=== PATIENT | female | born 1980 | race Caucasian/White ===

== ENCOUNTER → 2019-12-02 17:54 | Outpatient (CLI) | payer OTHER, SELFPAY ==
--- NOTE | ~2019-12-02 | MR_ITS ---
EXAMINATION: MR cervical spine wo con EXAM DATE: 12/02/2019 18:39 INDICATION: Neck pain, left shoulder, left arm pain. TECHNIQUE: Multi-sequential, multiplanar MR images of the cervical spine were obtained without contra st. Axial T2, axial T2 MERGE sequence. Sagittal T1, T2, T2 fat saturation images also obtained. Th ere is no prior study for comparison. FINDINGS: There is moderate loss of the disc heights at C5-6 and 6-7. Disc bulge, the extrusion at t he C6-7 level. The spinal cord signal intensity and intrinsic morphology is normal. Cervicomedullary junction is normal in appearance. There are no suspicious marrow signal abnormalities. The vertebral bodies are aligned in the AP dimension. Paraspinal soft tissue is unremarkable. Level by level evaluation: C2-C3: Disc does not extend beyond the endplate margin. Uncovertebral joint arthropathy: None. Facet joint arthropathy: Mild bilateral. Neural foraminal stenosis: No stenosis. Central canal stenosis: No stenosis. C3-C4: Disc does not extend beyond the endplate margin. Uncovertebral joint arthropathy: None. Facet joint arthropathy: Mild bilateral. Neural foraminal stenosis: No stenosis. Central canal stenosis: No stenosis. C4-C5: Disc does not extend beyond the endplate margin. Uncovertebral joint arthropathy: None. Facet joint arthropathy: Mild bilateral. Neural foraminal stenosis: No stenosis. Central canal stenosis: No stenosis. C5-C6: There is a mild diffuse disc bulge. Uncovertebral joint arthropathy: Mild to moderate bilateral. Facet joint arthropathy: Mild bilateral. Neural foraminal stenosis: Mild to moderate right, mild left. Central canal stenosis: Mild. C6-C7: There is a mild diffuse disc bulge with superimposed left central small to moderate extrusion indenting the spinal cord and causing mass effect on the lateral recess. Uncovertebral joint arthropathy: Mild to moderate. Facet joint arthropathy: Mild. Neural foraminal stenosis: Mild right. Central canal stenosis: Mild. C7-T1: Disc does not extend beyond the endplate margin. Uncovertebral joint arthropathy: Mild bilateral. Facet joint arthropathy: Mild bilateral. Neural foraminal stenosis: No stenosis. Central canal stenosis: No stenosis. IMPRESSION: C6-7 left central small to moderate extrusion indenting the spinal cord and narrowing the lateral recess, could be affecting C8 nerve root in the lateral recess. Reviewed, dictated and finalized at location A.
== END ==
PROVIDERS: PCP Family Medicine; Visit Provider Family Medicine
DX: M50.223 Other cervical disc displacement at C6-C7 level (principal)
CPT/HCPCS: 72141

== ENCOUNTER → 2021-03-09 10:44 | Outpatient (CLI) | payer OTHER, SELFPAY ==
--- NOTE | ~2021-03-09 | CT_ITS ---
EXAMINATION: CT IAC/mastoids BI wo con DATE: 03/09/2021 11:04 INDICATION: Conductive hearing loss in right ear. TECHNIQUE: Computed tomography (CT) of the temporal bones was performed without intravenous contrast. Automated exposure control and iterative reconstruction technique were employed. The dose-length pro duct was 216.28 mGy-cm. COMPARISON: Brain MRI 12/16/2018 FINDINGS: There are mucous retention cysts in left maxillary sinus. RIGHT TEMPORAL BONE: The internal auditory canal, cochlea, vestibule, semicircular canals, vestibular aqueduct, facial ner ve course, carotid canal, and jugular bulb are normal. There is material around the ossicles with ero sions of the ossicles. There is material in Prussak space. There are erosions of scutum. The tympanic membrane is normal. The external auditory canals normal. The mastoid air cells are normal. LEFT TEMPORAL BONE: The internal auditory canal, cochlea, vestibule, semicircular canals, vestibular aqueduct, carotid ca nal, jugular bulb, facial nerve course, ossicles, Prussak space, scutum, tympanic membrane, mastoid a ir cells, and extraocular canal are normal. IMPRESSION: 1. Material around the right-sided ossicles and in right Prussak space with erosions of the ossicles and scutum suspicious for cholesteatoma. Reviewed, dictated and finalized at location A. IMPRESSION: 1. Material around the right-sided ossicles and in right Prussak space with ero sions of the ossicles and scutum suspicious for cholesteatoma.
== END ==
PROVIDERS: Visit Provider Otolaryngology
DX: H91.90 Unspecified hearing loss, unspecified ear (principal)
CPT/HCPCS: 70480

== ENCOUNTER → 2021-12-08 09:00 | Outpatient (CLI) | payer OTHER, SELFPAY ==
--- NOTE | ~2021-12-08 | XR_ITS ---
EXAMINATION: XR hip RT min 2V DATE: 12/08/2021 09:57 INDICATION: Right hip pain TECHNIQUE: Two views of right hip were obtained. COMPARISON: None. FINDINGS: Bone alignment is normal. There is no fracture. There is moderate osteoarthritis of the hip . Phleboliths are noted in the pelvis. IMPRESSION: 1. Moderate osteoarthritis without acute osseous abnormality. Reviewed, dictated and finalized at location B.
--- NOTE | ~2021-12-08 | XR_ITS ---
EXAMINATION: XR lumbar spine min 4V DATE: 12/08/2021 09:57 INDICATION: Dorsalgia unspecified TECHNIQUE: Anteroposterior, lateral, and bilateral oblique views of the lumbar spine, and cone-down l ateral view of the lumbosacral junction were obtained. COMPARISON: None. FINDINGS: There are bilateral L5 pars defects. There is grade 1 anterolisthesis of L5 on S1. Vertebra l body alignment is otherwise normal. There is moderate loss of intervertebral disc space height at L 5-S1. The remaining vertebral body heights are maintained. There is no fracture. IMPRESSION: 1. Bilateral L5 pars defects with grade 1 anterolisthesis L5 on S1. Reviewed, dictated and finalized at location B.
== END ==
PROVIDERS: PCP Family Medicine; Visit Provider Physician Assistant
DX: M54.9 Dorsalgia, unspecified (principal); M16.11 Unilateral primary osteoarthritis, right hip
CPT/HCPCS: 72110; 73502

== ENCOUNTER 2022-06-19 09:17 | Emergency (ER) | payer OTHER, SELFPAY ==
[2022-06-19] VITALS (12 sets, daily range): BP systolic 129–164; BP diastolic 54–100; PULSE 79–103; RESP 11–21; TEMP 36.1–36.6; O2SAT 97–100
--- NOTE | ~2022-06-19 | CT_ITS ---
EXAMINATION: CT abdomen pelvis w con DATE: 06/19/2022 10:29 INDICATION: Right lower quadrant abdominal pain. TECHNIQUE: Computed tomography (CT) of the abdomen and pelvis was performed with 100 mL Omnipaque 350 intravenous contrast. Automated exposure control and iterative reconstruction technique were employe d. The dose-length product was 1268.64 mGy-cm. COMPARISON: None. FINDINGS: The visualized portions of the lung bases demonstrate minimal atelectasis. No pleural effus ion. The heart size is normal. No pericardial effusion. The liver, gallbladder, spleen, pancreas, adr enal glands, and right kidney are normal. There is a 6 mm mass of fat in left kidney, consistent with an angiomyolipoma. There are no dilated loops of bowel. The appendix is not visualized. There are no pathologically enlarged lymph nodes. There is no free intraperitoneal fluid. There is moderate lower lumbar spondylosis. There are chronic bilateral L5 pars defects with 3 mm anterolisthesis of L5 on S 1. IMPRESSION: 1. No specific etiology for the patient's symptoms. Appendix not visualized. Reviewed, dictated and finalized at location B.
--- NOTE | ~2022-06-19 | US_ITS ---
EXAMINATION: US pelvic complete w TV DATE: 06/19/2022 11:54 INDICATION: Right adnexal pain Comparison:No prior studies for comparison. TECHNIQUE: Multiple transabdominal and endovaginal sonographic images of the pelvis performed. FINDINGS: The uterus measures 11.1 x 2.7 x 4.5 cm. The endometrial complex measures 6 mm. The right ovary measures 2.9 x 1.8 x 2.5 cm and the left ovary measures 2 x 2.1 x 2.6 cm. There are small follicles in each ovary. Normal doppler signal in both ovaries. There is no free fluid in the pelvis. There are no abnormal masses seen on either side. IMPRESSION: 1. Unremarkable pelvic ultrasound. Reviewed, dictated and finalized at location A.
[2022-06-19] MEDS: MORPHINE SULFATE (*CRX) 4 MG/ML INJ IV PUSH (09:50)
[2022-06-19] MEDS: ONDANSETRON INJ 4 MG/2 ML VIAL IV PUSH (09:50)
[2022-06-19 09:53] LABS: Basophils Percent Auto 0.6 % (0.2-1.2); Eosinophils Percent Auto 0.3 % (0-4.4); Hematocrit 42.3 % (37.0-47.0); Hemoglobin 14.1 g/dL (12.0-15.0); Lymphocytes Absolute Auto 2.04 K/mm3 (0.9-3.2); Mean Corpuscular HGB Conc 33.3 g/dl (32-36); Mean Platelet Volume 9.3 fl (7.4-10.4); Monocytes Absolute Auto 0.5 K/mm3 (0.1-0.6); Monocytes Percent Auto 7.1 % (2.6-8.5); Platelet Count Result 262 k/mm3 (150-375); Red Cell Distribution Width 12.3 % (11.5-14.5); White Blood Count 6.6 K/mm3 (4.5-10.0)
[2022-06-19 09:56] LABS: Appearance Urine Clear (Clear); Bilirubin Urine Negative (Negative); Blood Urine Negative (Negative); Color Urine Yellow (Yellow); Glucose Urine UA Negative (Negative); Ketones Urine Negative (Negative); Leukocyte Esterase Ur Negative LEU/UL (Negative); Nitrate Urine Negative (Negative); Protein Urine Negative (Negative); Urobilinogen Urine 0.2 mg/dL (<2.0); pH Urine 6.5 (5.0-9.0)
--- NOTE | 2022-06-19 10:01 | ED.ABDPAIN ---
HPI - Abdominal Pain General Chief Complaint: Abdominal Pain Stated Complaint: abd pain Time Seen by Provider: 06/19/22 09:23 History of Present Illness HPI narrative: Patient is a 42-year-old female who presents ER with lower abdominal pain. Patient reports symptoms began 2 days ago after she sneezed and she had sharp pain. It has been persistent over the last couple days but today it suddenly worsened. She felt a bubble grow in her lower abdomen and then returned back inside of her body. She is extremely tender in the lower abdomen/suprapubic region on the right side. No difficulty with bowel movements. No radiation into the groin or buttock. No vaginal bleeding or vaginal discharge. No urinary frequency urgency or dysuria. Related Data Allergies Allergy/AdvReac Type Severity Reaction Status Date / Time No Known Allergies Allergy Verified 12/08/21 08:26 Review of Systems Review of Systems: All systems reviewed & are unremarkable except as noted in HPI and below Constitutional: Constitutional: Denies chills and Denies fever(s) ENT: Denies nasal congestion and Denies sore throat Cardiovascular: Cardiovascular: Denies chest pain, Denies rapid heart rate and Denies radiating jaw, neck or arm pain Respiratory: Respiratory: Denies cough and Denies dyspnea Gastrointestinal: Gastrointestinal: Reports abdominal pain, Denies diarrhea, Denies nausea and Denies vomiting Genitourinary: Genitourinary: Denies nocturia, Denies dysuria, Reports pelvic pain and Denies flank pain Neurologic: Denies focal weakness and Denies numbness PMFSH Past Medical History Medical History Neck pain Surgical History Surgical History Previous section S/P cervical disc replacement Family History Family History (Updated 12/08/21 @ 08:30 by Ermelinda Salinas CMA) Father Cerebrovascular accident Family history of diabetes mellitus in first degree relative Mother Family history of diabetes mellitus in first degree relative Cancer Sibling Bipolar disorder Sibling Hypertension Other Diabetes mellitus Family history of allergic disorder Family history of malignant neoplasm Social History Social History (Updated 12/08/21 @ 08:31 by Ermelinda Salinas CMA) Smoking status: Never smoker Second hand tobacco smoke exposure: No Alcohol intake: never Alcohol use details: seldom; socially Substance use: never Substance use type: does not use Gender identity (if verbalized by the patient): Female Exam Narrative: GENERAL: Well-appearing, well-nourished, and in no acute distress. HEAD: Normocephalic, atraumatic. EYES: PERRL and EOMI. ENT: Mucous membranes moist. CHEST: Clear to auscultation. No respiratory distress. HEART: Regular rate and rhythm. Normal peripheral pulses. ABDOMEN: Soft, very tender in the right lower quadrant/pelvic region without palpable mass to indicate hernia in the inguinal canal, nondistended. EXTREMITIES: Normal range of motion. No edema. SKIN: Warm, dry, no rash. NEURO: Alert and oriented x3. PSYCH: Normal mood and affect. Course Course Emergency Course: Unremarkable evaluation. Suspect muscle strain of the abdominal wall. Discharge home with supportive medications. Vital Signs Vital signs: Vital Signs Temperature 97.0 F L 06/19/22 09:19 Pulse Rate 103 H 06/19/22 09:19 Respiratory Rate 18 06/19/22 09:19 Blood Pressure 145/54 H 06/19/22 09:19 Pulse Oximetry 100 06/19/22 09:19 Oxygen Delivery Room Air 06/19/22 09:19 Temperature 97.0 F L 06/19/22 09:19 Pulse Rate 92 06/19/22 13:20 Respiratory Rate 11 L 06/19/22 13:20 Blood Pressure 142/100 H 06/19/22 13:19 Pulse Oximetry 99 06/19/22 13:20 Oxygen Delivery Room Air 06/19/22 09:19 MDM - Abdominal Pain Lab Data Result diagrams: 06/19/22 09:35
[2022-06-19 10:12] LABS: Alanine Aminotransferase 27 U/L (6-35); Albumin Level 4.4 g/dL (3.5-5.1); Alkaline Phosphatase 35 U/L (38-126); Anion Gap 10 mmol/L (8-16); Aspartate Amino Transferase 39 U/L (14-36); Bilirubin,Total 0.3 mg/dL (0.2-1.3); Blood Urea Nitrogen 14 mg/dL (7-17); Calcium 9.2 mg/dL (8.4-10.2); Carbon Dioxide 25 mmol/L (22-30); Chloride 104 mmol/L (98-107); Estimated CRCL calculation 119 ml/min; Estimated Glomerular Filt Rate > 60; Glucose 105 mg/dL (65-110); Lipase 40 U/L (23-300); Sodium 139 mmol/L (137-145)
[2022-06-19 10:18] LABS: Add Urine Microscopic? NO
[2022-06-19] MEDS: KETOROLAC 30 MG/ML VIAL (*BKC) IV PUSH (13:17)
== END 2022-06-19 14:23 | disposition home or self-care (01) ==
PROVIDERS: Emergency Provider Emergency Medicine; PCP Family Medicine
DX: S39.011A Strain of muscle, fascia and tendon of abdomen, initial encounter (principal); X50.9XXA Other and unspecified overexertion or strenuous movements or postures, initial encounter
CPT/HCPCS: 36415; 74177; 76830; 76856; 80053; 81003; 81025; 83690; 85025; 96374; 96375; 99284; J1885; J2270; J2405; Q9967

== ENCOUNTER 2023-09-19 13:10 | Outpatient (CLI) | payer BC, SELFPAY ==
--- NOTE | ~2023-09-19 | XR_ITS ---
EXAMINATION: XR lg joint inject/asp w image DATE: 09/19/2023 14:25 INDICATION: Right hip osteoarthritis with right hip pain TECHNIQUE: A time-out was performed to verify the patient's name, date of , and procedure to b e performed. The procedure including the risks, benefits, and alternatives was discussed with the pat ient. Risks discussed included bleeding and infection. The patient understood the risks and agreed to proceed. The skin overlying the right hip joint was prepped and draped in usual sterile fashion. A nesthetic was administered with 1% lidocaine subcutaneously. A 22 G needle was advanced under fluoro scopic guidance into the joint. Injection of 1 mL of Omnipaque 240 confirmed intra-articular positio n of the needle. Subsequently, injectate consisting of 3 mL of a 2:1 mixture of 0.5% Marcaine: 80 mg /mL Depo-Medrol for a total dosage of 80 mg Depo-Medrol was instilled. Washout of contrast was seen c onfirming intra-articular administration. The needle was removed and the entry site was cleaned and d ressed. There were no immediate complications. Fluoroscopy exposure time was 0.1 minutes. The total number of images was 2. FINDINGS: Real-time fluoroscopy demonstrates the needle in the right hip joint. Patient's pain prior to procedure:01/24. Patient's pain following the procedure: 09/26. IMPRESSION: 1. Successful right hip joint injection of local anesthetic and steroid with decrease in the patient' s presenting pain. Reviewed, dictated and finalized at location A. [employer] IMPRESSION: 1. Successful right hip joint injection of local anesthetic and steroid with de crease in the patient's presenting pain.
== END 2023-09-19 13:11 | disposition home or self-care (01) ==
PROVIDERS: PCP Family Medicine; Visit Provider Nurse Practitioner Family
DX: M16.11 Unilateral primary osteoarthritis, right hip (principal)
CPT/HCPCS: 20610; 77002; J1040; Q9966

== ENCOUNTER 2025-08-29 05:58 | Day surgery (SDC) | payer OTHER, SELFPAY ==
[2025-08-04 11:56] VITALS: BMI 34.4
[2025-08-29 06:20] VITALS: BMI 31.8
[2025-08-29 06:21] VITALS: BP 109/84; PULSE 83; RESP 16; TEMP 36.5; O2SAT 97
--- NOTE | 2025-08-29 07:32 | WPDANESEPPF ---
Anes - Initial Pre Proc Eval Procedure: Operation Date: 08/29/25 07:30 Proposed Procedures p Screening Colonoscopy - Amaury Walters MD Date/Time: 08/29/25 07:32 Surgeon: Amaury Walters MD Pre Op Diagnosis: Encounter for screening for malignant neoplasm of Patient Data Age: 45 Gender: F Height: 1.73 m Weight: 95.1 kg Last Vital Signs Temp 36.5 C 08/29/25 06:21 Pulse 83 08/29/25 06:21 Resp 16 08/29/25 06:21 BP 109/84 08/29/25 06:21 Pulse Ox 97 08/29/25 06:21 O2 Del Method Room Air 08/29/25 06:21 Allergies Allergy/AdvReac Type Severity Reaction Status Date / Time No Known Allergies Allergy Verified 08/29/25 06:08 Home Medications ?Medication ?Instructions ?Recorded ?Confirmed ?Type amitriptyline 25 mg tablet See Rx Instructions .Route 07/28/25 08/29/25 Rx .COMPLEX #180 tabs multivitamin (Daily Multi-Vitamin 1 tablet PO DAILY 08/20/25 08/29/25 History tablet) Patient hx anesthesia problems: none Family hx anesthesia problems: none Results Review: All pre-operative results and documents have been reviewed as part of the pre-operative evaluation. [facility] Past Medical History Medical History Femoral acetabular impingement Degenerative joint disease of right hip Right hip pain Trochanteric bursitis, right hip Neck pain Surgical History Surgical History History of right hip replacement (~03/10/24) History of tonsillectomy S/P cervical disc replacement Previous section Family History Family History Father Cerebrovascular accident Family history of diabetes mellitus in first degree relative Mother Family history of diabetes mellitus in first degree relative Cancer Sibling Bipolar disorder Sibling Hypertension Other Diabetes mellitus Family history of allergic disorder Family history of malignant neoplasm Social History Social History Social History: caffeine use Smoking status: Former smoker Tobacco type: cigarettes Second hand tobacco smoke exposure: No Alcohol intake: current Drinks per week: 2 Substance use: never Substance use type: does not use Lack of Transportation: No Lack of Food: Never True Current Housing: I Have Housing Concerned About Future Housing: No Difficulty Paying Gas/Electric Bills: No Difficulty Paying for Meds: No Currently Unemployed: No Education: Bachelor's Degree Difficulty w/ Childcare or Family Care: No Living arrangements: with family Occupation/Education: occupation 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 Gender identity (if verbalized by the patient): Female Sexual Orientation (if Verbalized by the Patient): Straight or Heterosexual Spiritual care concerns: No Anes - Eval Final PreProcedure Day of Procedure 08/29/25 07:32 Heart: regular rate and rhythm Lungs: clear to auscultation Airway: Mallampati scale class II Neurological: alert and oriented Last oral intake: >/= 8 hours ASA classification: II Emergent: no Anesthetic plan: proceed Anesthesia type and monitoring: monitored anesthesia care Results Review: All pre-operative results and documents have been reviewed as part of the pre-operative evaluation. Informed Consent: The patient's anesthetic plan and its attendant risks and benefits were discussed with the patient/family/POA. Questions were solicited and answers provided to the satisfaction of the patient/family/POA.
[2025-08-29] MEDS: LACTATED RINGERS 1,000 ML 150 ML IV CONT (07:37)
--- NOTE | 2025-08-29 07:39 | PM.IMHP2 ---
H&P: HPI History of Present Illness Date/Time: 08/29/25 07:39 Chief Complaint: screening colonoscopy Narrative: This is the patient's 2nd colonoscopy. she had a colonoscopy 15 years ago and a diagnosis of ulcerative colitis, There are no GI symptoms and there is no family history of colorectal cancer. Review of Systems Review of Systems: All systems reviewed & are unremarkable except as noted in HPI and below PMFSH Past Medical History Medical History Femoral acetabular impingement Degenerative joint disease of right hip Right hip pain Trochanteric bursitis, right hip Neck pain Surgical History Surgical History History of right hip replacement (~03/10/24) History of tonsillectomy S/P cervical disc replacement Previous section Family History Family History Father Cerebrovascular accident Family history of diabetes mellitus in first degree relative Mother Family history of diabetes mellitus in first degree relative Cancer Sibling Bipolar disorder Sibling Hypertension Other Diabetes mellitus Family history of allergic disorder Family history of malignant neoplasm Social History Social History Social History: caffeine use Smoking status: Former smoker Tobacco type: cigarettes Second hand tobacco smoke exposure: No Alcohol intake: current Drinks per week: 2 Substance use: never Substance use type: does not use Lack of Transportation: No Lack of Food: Never True Current Housing: I Have Housing Concerned About Future Housing: No Difficulty Paying Gas/Electric Bills: No Difficulty Paying for Meds: No Currently Unemployed: No Education: Bachelor's Degree Difficulty w/ Childcare or Family Care: No Living arrangements: with family Occupation/Education: occupation Additional occupation/education comments: machinist mechanic Gender identity (if verbalized by the patient): Female Sexual Orientation (if Verbalized by the Patient): Straight or Heterosexual Spiritual care concerns: No Meds Home Medications and Allergies Home Medications ?Medication ?Instructions ?Recorded ?Confirmed ?Type amitriptyline 25 mg tablet See Rx Instructions .Route 07/28/25 08/29/25 Rx .COMPLEX #180 tabs multivitamin (Daily Multi-Vitamin 1 tablet PO DAILY 08/20/25 08/29/25 History tablet) Allergies Allergy/AdvReac Type Severity Reaction Status Date / Time No Known Allergies Allergy Verified 08/29/25 06:08 Vital Signs Vital Signs - 24 hr 08/29/25 06:21 Temperature 97.7 F Pulse Rate 83 Respiratory Rate 16 Blood Pressure 109/84 Pulse Oximetry 97 Oxygen Delivery Room Air Exam Const: General: cooperative and healthy appearing Resp: Effort & Inspection: normal respiratory effort and able to speak in complete sentences Auscultation: clear to auscultation bilaterally Cardio: Rate: regular rate Rhythm: regular rhythm GI: Inspection: normal to inspection GI Palp: No No hepatosplenomegaly present Auscultation: normal bowel sounds Rectal Exam: deferred Skin: General skin exam: normal color Psych: Appearance: grossly normal Mental Status: mental status grossly normal Assessment and Plan Assessment and plan (1) Encounter for screening colonoscopy: Code(s): Z12.11 - Encounter for screening for malignant neoplasm of colon Status: Acute Assessment and Plan: The patient is deemed a good candidate for the procedure. Consent signed. Will proceed. Prior Studies I have reviewed the following patient records and this information was taken into consideration when formulating the assessment and plan.: previous labs, previous ER visits, previous hospitalizations and previous clinic visits
[2025-08-29 08:05] VITALS: BP 104/77; PULSE 81; RESP 16; O2SAT 100
--- NOTE | 2025-08-29 08:09 | WPDANESPN ---
Anes - Prog Note Post-Op Date/Time: 08/29/25 08:09 Cardiovascular status: normal Respiratory status: normal Airway patency: baseline Mental status: baseline Post-Op hydration status: normal Vital Signs: Last Vital Signs Temp 36.5 C 08/29/25 06:21 Pulse 81 08/29/25 08:05 Resp 16 08/29/25 08:05 BP 104/77 08/29/25 08:05 Pulse Ox 100 08/29/25 08:05 O2 Del Method Room Air 08/29/25 08:05 Pain Score (VAS): 0 I/O: Intake & Output 08/28/25 08/29/25 08/29/25 23:59 07:59 15:59 Intake Total 0 Balance 0 Patient Feedback: Patient satisfied with anesthetic care.
[2025-08-29 08:15] VITALS: BP 116/80; PULSE 73; RESP 16; O2SAT 100
[2025-08-29 08:25] VITALS: BP 116/86; PULSE 69; RESP 18; O2SAT 100
== END 2025-08-29 08:28 | disposition home or self-care (01) ==
PROVIDERS: Visit Provider Internal Medicine Gastroenterology
PROC: 0DJD8ZZ Inspection of Lower Intestinal Tract, Via Natural or Artificial Opening Endoscopic (ICD-10-PCS; CPT 45378; principal; 2025-08-29 07:30)
DX: Z12.11 Encounter for screening for malignant neoplasm of colon (principal)
CPT/HCPCS: 45378